=== PATIENT | female | born 1950 | race Caucasian/White ===

== ENCOUNTER 2018-12-16 18:00 | Emergency (ER) | payer OTHER ==
[~2018-12-16] VITALS: Ht 157.5 cm; Wt 98.9 kg
[2018-12-16] MEDS ORDERED: FORTAMET1000 MG (18:50)
[2018-12-16] MEDS ORDERED: RANITIDINE HCL150 M1 (18:50)
[2018-12-16] MEDS ORDERED: ZOLOFT50 MG (18:50)
[2018-12-16] MEDS ORDERED: ASPIR 8181 MG (18:50)
[2018-12-16] MEDS ORDERED: LISINOPRIL1 GM (18:50)
[2018-12-16] MEDS ORDERED: MEDROLPACK PO (22:13)
== END 2018-12-16 22:27 | disposition home or self-care (01) ==
LOC: ER 18:00
DX: G51.0 Bell's palsy (principal)